=== PATIENT | female | born 1940 | race Caucasian/White ===

== ENCOUNTER 2022-02-15 17:37 | Inpatient (IN) | payer OTHER ==
[~2022-02-15] VITALS: Ht 162.6 cm; Wt 66.7 kg
--- NOTE | 2022-02-15 18:08 | NUR ---
KYLIE GILMORE100 From Board and care "Diarrhea xcouple days now feeling weak". PLACED ON BED, AAOX4, IN PAIN 05/30. SEEN AND EXAMINED BY
--- NOTE | 2022-02-15 18:38 | NUR ---
BLOOD DRAWN AND SENT TO LAB
--- NOTE | 2022-02-15 18:54 | NUR ---
SWAB FOR COVID19 SENT TO LAB
[2022-02-15 20:22] LABS: BASOPHILS # (AUTO) 0.1 K/uL (0.0-0.2); BASOPHILS % (AUTO) 0.7 % (0.0-2.0); EOSINOPHILS % (AUTO) 0.9 % (0.0-6.0); HEMATOCRIT 38 % (33-45); HEMOGLOBIN 12.4 g/dL (11.5-14.8); LYMPHOCYTES # (AUTO) 1.7 K/uL (0.8-4.8); LYMPHOCYTES % (AUTO) 15.1 % (20.0-44.0); MEAN CORPUSCULAR HGB CONC 33 g/dl (31.0-36.0); MEAN CORPUSCULAR VOLUME 86 fL (82-100); MONOCYTES % (AUTO) 9.4 % (2.0-12.0); NEUTROPHILS # (AUTO) 8.3 K/uL (1.8-8.9); NEUTROPHILS % (AUTO) 73.9 % (43.0-81.0); PLATELET COUNT (AUTO) 290 K/uL (150-450); RED BLOOD CELL COUNT(AUTO) 4.39 MIL/uL (4.0-5.2); WHITE BLOOD COUNT (AUTO) 11.2 K/uL (4.3-11.0)
[2022-02-15] MEDS ORDERED: IV NS 0.9% 500 ML BAG IV ONE (20:30)
[2022-02-15 21:54] LABS: ALANINE AMINOTRANSFERASE 17 U/L (12-78); ALBUMIN 2.8 g/dL (3.4-5.0); ALKALINE PHOSPHATASE 74 U/L (46-116); ASPARTATE AMINOTRANSFERASE 26 U/L (15-37); BILIRUBIN,DIRECT 0.2 mg/dL (0.0-0.2); BILIRUBIN,TOTAL 0.5 mg/dL (0.2-1.0); CALCIUM, SERUM 9.3 mg/dL (8.5-10.1); CARBON DIOXIDE 27 mmol/L (21-32); CHLORIDE 93 mmol/L (98-107); CREATININE 1.2 mg/dL (0.6-1.3); GLUCOSE 137 mg/dL (74-106); POTASSIUM 4.4 mmol/L (3.5-5.1); SODIUM SERUM 128 mmol/L (136-145); TOTAL PROTEIN, SERUM 6.8 g/dL (6.4-8.2); UREA NITROGEN, BLOOD 22 mg/dL (7-18)
--- NOTE | 2022-02-15 21:55 | NUR ---
CRITICAL LAB : [facility] 501
[2022-02-15] MEDS ORDERED: ACETAMINOPHEN ES 500 MG TABLET ONE (22:07)
--- NOTE | 2022-02-15 22:11 | NUR ---
MICHELET EPRP PAGED PER DR WONG
[2022-02-15] MEDS ORDERED: ACETAMINOPHEN ES 500 MG TABLET PO ONE (22:30)
--- NOTE | 2022-02-15 22:53 | NUR ---
SP 107
[2022-02-15] MEDS ORDERED: ASPIRIN 81 MG TAB.CHEW PO ONE (23:00)
--- NOTE | 2022-02-15 23:05 | NUR ---
REPORT GIVEN TO YIMI SNOWDEN-Shahram FOR ALLIE
--- NOTE | 2022-02-15 23:08 | NUR ---
[facility] SWAB COLLECTED AND SENT TO LAB. PATIENT'S BELONGINGS LIST DONE.
--- NOTE | 2022-02-15 23:50 | NUR ---
RN OPENING NOTE 2320 ADMITTED PT FROM ER TO SP BROUGHT IN VIA GURNEY BY YIMI SARABIA WITH DX OF CHF, NSTEMI. PT CAME IN DUE TO GENERALIZED WEAKNESS AND DIARRHEA FOR COUPLE OF DAYS. PT IS A/O X 4. ON 02 2 LPM VIA NASAL CANNULA. NO S/SX OF ACUTE DISTRESS NOTED UPON ADMISSION. TELE MONITOR SHOWS SR WITH HR OF 70 BPM. IV ACCESS NOTED IN RIGHT HAND, #20g, SALINE LOCK ONLY. PT HAS SOME BRUISES ON HER LEFT ARM. DUE ASPIRIN 2 TABS GIVEN. NOTED PITTING EDEMA ON BILATERAL FEET +1. ELEVATED WITH PILLOW. ALL SAFETY MEASURES IN PLACE: BED LOCKED IN LOWEST POSITION. BED ALARM ON. SR UP X 2. CALL LIGHT WITHIN REACH. WILL CONTINUE TO MONITOR PT CLOSELY. BP 96/54, RR 28 T 97.5.
[2022-02-16] VITALS: BP 96/54
[2022-02-16] MEDS ORDERED: MAG HYDROX/AL HYDROX/SIMETH 30 ML UDC PO PRN (01:30)
[2022-02-16] MEDS ORDERED: ONDANSETRON HCL/PF 4 MG/2 ML VIAL IVP PRN (01:30)
[2022-02-16] MEDS ORDERED: ACETAMINOPHEN 325 MG TABLET PO PRN (01:30)
[2022-02-16] MEDS ORDERED: MORPHINE SULFATE INJ 2 MG/ML DISP.SYRIN IV PRN (01:30)
[2022-02-16] MEDS ORDERED: Z GUARD REMEDY 4 OZ OINT TP PRN (01:30)
[2022-02-16] MEDS ORDERED: ZOLPIDEM TARTRATE 5 MG TABLET PO PRN (01:30)
[2022-02-16 01:59] LABS: MAGNESIUM 1.7 mg/dL (1.8-2.4)
[2022-02-16] MEDS ORDERED: FUROSEMIDE 20 MG/2 ML VIAL IV ONE (03:00)
[2022-02-16 04:00] VITALS: BP 110/69
[2022-02-16] MEDS ORDERED: ENOXAPARIN SODIUM 60 MG/0.6 ML DISP.SYRIN SQ SCH (04:00)
--- NOTE | 2022-02-16 04:10 | NUR ---
RN NOTE GOT CRITICAL LAB FOR PT WITH [facility] OF 550. PT IS ASYMPTOMATIC. INFORMED STOCKROOM ATTENDANT HANNA ROTH AND SAID HE PUT ORDERS VIA EMAR. DUE MED/S GIVEN. WILL CONTINUE TO MONITOR PT.
--- NOTE | 2022-02-16 06:53 | NUR ---
RN CLOSING NOTE PT REMAIMEDA/O X 4. ON 02 2 LPM VIA NASAL CANNULA. NO S/SX OF ACUTE DISTRESS NOTED UPON ADMISSION. TELE MONITOR SHOWS SR WITH HR OF 70 BPM. IV ACCESS NOTED IN RIGHT HAND, #20g, SALINE LOCK ONLY. PT HAS SOME BRUISES ON HER LEFT ARM. DUE ASPIRIN 2 TABS GIVEN. NOTED PITTING EDEMA ON BILATERAL FEET +1. ELEVATED WITH PILLOW. ALL SAFETY MEASURES IN PLACE: BED LOCKED IN LOWEST POSITION. BED ALARM ON. SR UP X 2. CALL LIGHT WITHIN REACH. WILL CONTINUE TO MONITOR PT CLOSELY. BP 96/54, RR 28 T 97.5. Addendum: 02/16/22 at 0657 by ROSALIND BURKETT RN PT CLOSING NOTE PT REMAINED IN BED, SLEEPING MOST OF THE TIME. ON O2 VIA NC TOLERATING WELL. NO SOB OR PAIN NOTED. TELE MONITOR SHOWS SR WITH HR OF 70s. IV ACCESS IN RIGHT HAND, #20g, SALINE LOCK ONLY. ALL DUE MEDS GIVEN. ALL NEEDS ATTENDED TO. SAFETY MEASURES IMPLEMENTED; BED LOCKED IN LOWEST POSITION, BED ALARM ON. CALL LIGHT WITHIN REACH. WILL ENDORSE TO AM SHIFT NURSE FOR ALLIE.
[2022-02-16] MEDS ORDERED: PANTOPRAZOLE 40 MG TABLET.DR PO SCH (07:30)
--- NOTE | 2022-02-16 07:30 | NUR ---
RN NOTES PT FOUND SEMI FOWLERS DISPLAYING NO S/S OF DISTRESS, PT ENDORSES NO PAIN AND IS BREATHING EVEN AND UNLABORED ON 2L O2 NC. R HAND 20G IS PATIENT AND INTACT. SAFETY MEASURES IN PLACE, BED LOCKED AND IN LOWEST POSITION, SIDE RAILS UPX2, CALL LIGHT WITHIN REACH, PT INSTRUCTED TO CALL FOR ASSISTANCE.
[2022-02-16] MEDS ORDERED: SIME80TA15 PO (07:39)
[2022-02-16] MEDS ORDERED: MICO25PO2 TD (07:39)
[2022-02-16] MEDS ORDERED: DICL100G34 TP (07:39)
[2022-02-16] MEDS ORDERED: COLC0.6C3 PO (07:39)
[2022-02-16] MEDS ORDERED: CLOP75TA15 PO (07:39)
[2022-02-16] MEDS ORDERED: FAMO20TA8 PO (07:39)
[2022-02-16] MEDS ORDERED: SPIR25TA6 PO (07:39)
[2022-02-16] MEDS ORDERED: WARF2.5T85 PO (07:39)
[2022-02-16] MEDS ORDERED: CICL6.1H2 IH (07:39)
[2022-02-16] MEDS ORDERED: METO25TA20 PO (07:39)
[2022-02-16] MEDS ORDERED: FURO40TA5 PO (07:39)
[2022-02-16] MEDS ORDERED: RISE35TA PO (07:39)
[2022-02-16] MEDS ORDERED: WARF-58 PO (07:39)
[2022-02-16] MEDS ORDERED: TRAZ-182 PO (07:39)
[2022-02-16 07:45] LABS: BASOPHILS # (AUTO) 0.1 K/uL (0.0-0.2); BASOPHILS % (AUTO) 0.9 % (0.0-2.0); EOSINOPHILS % (AUTO) 2.9 % (0.0-6.0); HEMATOCRIT 34 % (33-45); HEMOGLOBIN 11.1 g/dL (11.5-14.8); LYMPHOCYTES # (AUTO) 2.4 K/uL (0.8-4.8); LYMPHOCYTES % (AUTO) 30.8 % (20.0-44.0); MEAN CORPUSCULAR HGB CONC 33 g/dl (31.0-36.0); MEAN CORPUSCULAR VOLUME 87 fL (82-100); MONOCYTES # (AUTO) 0.8 K/uL (0.1-1.30); MONOCYTES % (AUTO) 10.5 % (2.0-12.0); NEUTROPHILS # (AUTO) 4.2 K/uL (1.8-8.9); NEUTROPHILS % (AUTO) 54.9 % (43.0-81.0); PLATELET COUNT (AUTO) 249 K/uL (150-450); RED BLOOD CELL COUNT(AUTO) 3.93 MIL/uL (4.0-5.2); WHITE BLOOD COUNT (AUTO) 7.7 K/uL (4.3-11.0)
[2022-02-16] MEDS ORDERED: ACET-868 PO (07:46)
[2022-02-16] MEDS ORDERED: EZET10TA16 PO (07:46)
[2022-02-16] MEDS ORDERED: FLUT16SP (07:46)
[2022-02-16] MEDS ORDERED: GUAI600T53 PO (07:46)
[2022-02-16] MEDS ORDERED: BENZ-13 PO (07:46)
[2022-02-16] MEDS ORDERED: VIT1CAPS9 PO (07:46)
[2022-02-16] MEDS ORDERED: IPRA0.2S9 IH (07:46)
[2022-02-16 07:50] LABS: ALANINE AMINOTRANSFERASE 14 U/L (12-78); ALBUMIN 2.5 g/dL (3.4-5.0); ALKALINE PHOSPHATASE 64 U/L (46-116); ASPARTATE AMINOTRANSFERASE 24 U/L (15-37); BILIRUBIN,TOTAL 0.4 mg/dL (0.2-1.0); CALCIUM, SERUM 8.7 mg/dL (8.5-10.1); CARBON DIOXIDE 27 mmol/L (21-32); CHLORIDE 95 mmol/L (98-107); CREATININE 1.4 mg/dL (0.6-1.3); GLUCOSE 98 mg/dL (74-106); MAGNESIUM 1.8 mg/dL (1.8-2.4); POTASSIUM 4.3 mmol/L (3.5-5.1); SODIUM SERUM 131 mmol/L (136-145); TOTAL PROTEIN, SERUM 6.2 g/dL (6.4-8.2); UREA NITROGEN, BLOOD 25 mg/dL (7-18)
[2022-02-16 08:00] VITALS: BP 96/60
[2022-02-16 08:59] LABS: CHOLESTEROL 149 mg/dL (<200); HDL CHOLESTEROL 38 mg/dL (40-60); LDL 104 mg/dL (0-99); TRIGLYCERIDES 80 mg/dL (30-150)
[2022-02-16] MEDS: FUROSEMIDE 40 MG/4 ML VIAL IV SCH ×3 (10:01→17:09)
[2022-02-16 16:00] VITALS: BP 97/56
--- NOTE | 2022-02-16 18:00 | NUR ---
TRANSFER RN CALLED [facility], GAVE REPORT VAHE DOHERTY RN. PRN RIG 144 IS ON SITE AND TRANSPORTING PATIENT. PT IS A&OX4, BREATHING EVEN AND UNLABORED ON 2L O2 NC AND ENDORSING NO PAIN. CHART GIVEN TO PT TO BRING IN TRANSPORT. BELONGINGS REVIEWED AND TRANSPORTED W/ PATIENT. 22G R HAND LEFT IN, HOSPITAL ID BAND REMOVED. PT ENDORSED IN STABLE CONDITION TO S TRANSPORT.
== END 2022-02-16 18:24 | disposition short-term general hospital (02) | DRG 280 ==
LOC: ER 17:42 → TELE-TD 23:00
PROVIDERS: ADMIT Nurse Practitioner Family
DX: I11.0 Hypertensive heart disease with heart failure (principal); I21.4 Non-ST elevation (NSTEMI) myocardial infarction; I50.33 Acute on chronic diastolic (congestive) heart failure; E44.0 Moderate protein-calorie malnutrition; E87.1 Hypo-osmolality and hyponatremia; I48.91 Unspecified atrial fibrillation; Z99.81 Dependence on supplemental oxygen; Z86.73 Personal history of transient ischemic attack (TIA), and cerebral infarction without residual deficits; M10.9 Gout, unspecified; Z79.51 Long term (current) use of inhaled steroids; Z79.02 Long term (current) use of antithrombotics/antiplatelets; Z79.899 Other long term (current) drug therapy; Z79.01 Long term (current) use of anticoagulants; E88.09 Other disorders of plasma-protein metabolism, not elsewhere classified; R79.89 Other specified abnormal findings of blood chemistry; E78.5 Hyperlipidemia, unspecified; E86.1 Hypovolemia; J44.9 Chronic obstructive pulmonary disease, unspecified; K57.30 Diverticulosis of large intestine without perforation or abscess without bleeding; Z87.891 Personal history of nicotine dependence; Z95.2 Presence of prosthetic heart valve; Z90.49 Acquired absence of other specified parts of digestive tract
CPT/HCPCS: 36415; 71045-TC; 80048-TC; 80053-TC; 80061-TC; 80076-TC; 83605-TC; 83735-TC; 83880; 84484-TC; 85025-TC; 85730-TC; 87040-TC; 87081-TC; 93307-TC; 97116-TC; 97530-TC; C9803; G0378; J1650; J1940